=== PATIENT | female | born 1945 | race Hispanic/Latino ===

== ENCOUNTER 2018-09-19 11:01 | Day surgery (SDC) | payer MEDICARE, OTHER ==
[~2018-09-19 11:01] MED LIST: IOPIDINE ONE; MYDRIACYL ONE; NEOFRIN ONE
[2018-09-19] MEDS ORDERED: MYDRIACYL OD ONE (11:30)
[2018-09-19] MEDS ORDERED: IOPIDINE OD ONE (11:30)
[2018-09-19] MEDS ORDERED: NEOFRIN OD ONE (11:30)
[2018-09-19 12:22] VITALS: BP 157/56
== END 2018-09-19 11:02 | disposition home or self-care (01) ==
LOC: OR 11:01
PROVIDERS: ATTEND Specialist
DX: H26.491 Other secondary cataract, right eye (principal); G43.909 Migraine, unspecified, not intractable, without status migrainosus; E78.00 Pure hypercholesterolemia, unspecified; I10 Essential (primary) hypertension; K21.9 Gastro-esophageal reflux disease without esophagitis; M19.90 Unspecified osteoarthritis, unspecified site; Z90.49 Acquired absence of other specified parts of digestive tract; Z90.710 Acquired absence of both cervix and uterus; Z87.442 Personal history of urinary calculi; Z88.2 Allergy status to sulfonamides; Z91.041 Radiographic dye allergy status; Z98.41 Cataract extraction status, right eye; Z98.42 Cataract extraction status, left eye; Z96.653 Presence of artificial knee joint, bilateral; Z98.890 Other specified postprocedural states; Z86.2 Personal history of diseases of the blood and blood-forming organs and certain disorders involving the immune mechanism

== ENCOUNTER 2018-10-03 10:30 | Day surgery (SDC) | payer MEDICARE, OTHER ==
[2018-10-03] MEDS ORDERED: NEOFRIN OS ONE (10:55)
[2018-10-03] MEDS ORDERED: MYDRIACYL OS ONE (10:55)
[2018-10-03] MEDS ORDERED: IOPIDINE OS ONE ×2 (10:55→12:03)
[2018-10-03 11:18] VITALS: BP 143/65
== END 2018-10-03 12:05 | disposition home or self-care (01) ==
LOC: OR 10:30
PROVIDERS: ATTEND Specialist
DX: H26.492 Other secondary cataract, left eye (principal); G43.909 Migraine, unspecified, not intractable, without status migrainosus; E78.00 Pure hypercholesterolemia, unspecified; I10 Essential (primary) hypertension; K21.9 Gastro-esophageal reflux disease without esophagitis; M19.90 Unspecified osteoarthritis, unspecified site; Z88.2 Allergy status to sulfonamides; Z91.041 Radiographic dye allergy status; Z79.899 Other long term (current) drug therapy; Z98.41 Cataract extraction status, right eye; Z98.42 Cataract extraction status, left eye; Z90.49 Acquired absence of other specified parts of digestive tract; Z90.710 Acquired absence of both cervix and uterus; Z98.890 Other specified postprocedural states; Z87.442 Personal history of urinary calculi; Z86.2 Personal history of diseases of the blood and blood-forming organs and certain disorders involving the immune mechanism
CPT/HCPCS: 82962